=== PATIENT | female | born 2000 | race Caucasian/White ===

== ENCOUNTER 2020-09-30 19:41 | Emergency (ER) | payer OTHER ==
[2020-09-30] MEDS ORDERED: NA CHLORIDE 0.9% 1,000 ML ONE (21:46)
[2020-09-30] MEDS ORDERED: ONDANSETRON 4 MG/2 ML VIAL ONE (21:46)
[2020-09-30] MEDS ORDERED: MORPHINE 4 MG/ML SYR ONE (21:46)
[2020-09-30 21:51] LABS: Urine Blood Negative (Negative); Urine Glucose Negative (Negative); Urine Protein Negative (Negative)
[2020-09-30 22:02] LABS: Absolute Lymphocytes (CBC) 3.3 K/uL (0.7-4.9); Basophils % 0.3 % (0-1.3); Hematocrit 45.5 % (36.0-45.0); Lymphocytes % 26.1 % (15.3-44.8); MPV 9.2 fL (7.6-11.3); RBC Red Blood Cell Count 5.28 M/uL (3.86-4.86)
[2020-09-30 22:23] LABS: ALT/SGPT 22 U/L (12-78); AST/SGOT 9 U/L (15-37); Albumin 4.3 g/dL (3.4-5.0); Alkaline Phosphatase 72 U/L (45-117); BUN Blood Urea Nitrogen 8 mg/dL (7-18); Bicarbonate 25 mmol/L (21-32); Bilirubin Direct < 0.1 mg/dL (0-0.2); Bilirubin Total 0.5 mg/dL (0.2-1.0); Glucose Level 80 mg/dL (74-106); Lipase 109 U/L (73-393); Potassium 3.8 mmol/L (3.5-5.1); Protein, Total 7.9 g/dL (6.4-8.2); Sodium Level 141 mmol/L (136-145)
--- NOTE | 2020-09-30 23:09 | ER ---
Nurse's Notes [facility] Name: Shannen eVla Age: 20 yrs Sex: Female : 2000 Arrival Date: 09/30/2020 Time: 19:44 Bed 23 Private MD: Diagnosis: Low back pain;Ovarian Cyst Presentation: 09/30 20:20 Chief complaint: Patient states: I have this on and off low back dull pain, then last rr5 night it was like a shooting pain that hurts a lot. denies trauma, denies urinary symptoms. 20:20 Coronavirus screen: Client denies travel out of the [place] in the last 14 days. At this rr5 time, the client does not indicate any symptoms associated with coronavirus-19. Ebola Screen: Patient negative for fever greater than or equal to 101.5 degrees Fahrenheit, and additional compatible Ebola Virus Disease symptoms Patient denies exposure to infectious person. Patient denies travel to an Ebola-affected area in the 21 days before illness onset. Initial Sepsis Screen: Does the patient meet any 2 criteria? No. Patient's initial sepsis screen is negative. Does the patient have a suspected source of infection? No. Patient's initial sepsis screen is negative. Risk Assessment: Do you want to hurt yourself or someone else? Patient reports no desire to harm self or others. Onset of symptoms was September 29, 2020. 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 - Social history:: Smoking status: unknown Patient uses alcohol, occasionally. street drugs, marijuana. Screenin:35 Abuse screen: Denies threats or abuse. Nutritional screening: No deficits noted. bb Tuberculosis screening: No symptoms or risk factors identified. Fall Risk None identified. Assessment: 20:35 General: Appears in no apparent distress. Behavior is calm, cooperative. Pain: bb Complains of pain in back Pain began 2-3 days ago. Is intermittent. Neuro: Level of Consciousness is awake, alert, obeys commands, Oriented to person, place, time, situation. Cardiovascular: No deficits noted. Respiratory: Airway is patent Respiratory effort is even, unlabored, Respiratory pattern is regular. GI: No signs and/or symptoms were reported involving the gastrointestinal system. Derm: Skin is pink, warm \T\ dry. Musculoskeletal: Reports pain in lower back. 21:56 Reassessment: Patient is alert, oriented x 3, equal unlabored respirations, skin bb warm/dry/pink. pt awaiting diagnostic results, family at bedside. 22:54 Reassessment: Patient is alert, oriented x 3, equal unlabored respirations, skin bb warm/dry/pink. IV site intact, no erythema or edema noted, pt awaiting diagnostic results, family at bedside Patient states feeling better. Patient states symptoms have improved. 23:23 Reassessment: Patient is alert, oriented x 3, equal unlabored respirations, skin bb warm/dry/pink. pt verbalized understanding of and agrees to plan of care discharge instructions given pt ambulated with steady gait to exit accompanied by spouse. Vital Signs: 20:20 BP 125 / 87; Pulse 76; Resp 16; Temp 98.6; Pulse Ox 100% ; Weight 58.97 kg; Height 5 rr5 ft. 4 in. (162.56 cm); Pain 5/10; 21:45 BP 105 / 51; Pulse 70; Resp 19; Pulse Ox 99% ; rr5 22:48 BP 115 / 61; Pulse 73; Resp 16 S; Pulse Ox 100% on R/A; Pain 2/10; bb 20:20 Body Mass Index 22.31 (58.97 kg, 162.56 cm) rr5 ED Course: 19:44 Patient arrived in ED. cl3 20:24 Triage completed. rr5 20:30 Destin Gan, JARED is Primary Nurse. mg2 20:34 Patient placed in an exam room, on a stretcher, on pulse oximetry. Family accompanied bb patient. 20:35 Patient has correct armband on for positive identification. Bed in low position. Call bb light in reach. Side rails up X 1. Adult w/ patient. Pulse ox on. NIBP on. Warm blanket given. 20:39 Kole Moss MD is Attending Physician. [facility] 21:45 Inserted saline lock: 20 gauge in right forearm, using aseptic technique. Blood rr5 collected. 22:21 CT Stone Protocol In Process Unspecified. EDMS 23:07 Clotilde Rosales MD is Referral Physician. [facility] 23:22 No provider procedures requiring assistance completed. IV discontinued, intact, bb bleeding controlled, No redness/swelling at site. Pressure dressing applied. Administered Medications: 21:47 Drug: Zofran (Ondansetron) 4 mg Route: IVP; Site: right forearm; rr5 22:45 Follow up: Response: No adverse reaction bb 21:49 Drug: morphine 4 mg {Note: rass 0.} Route: IVP; Site: right forearm; rr5 22:45 Follow up: Response: No adverse reaction; Pain is decreased; RASS: Alert and Calm (0) bb 21:49 Drug: NS 0.9% 1000 ml Route: IV; Rate: 1000 ml; Site: right forearm; rr5 22:45 Follow up: Response: No adverse reaction; IV Status: Completed infusion; IV Intake: bb 1000ml Intake: 22:45 IV: 1000ml; Total: 1000ml. bb Outcome: 23:08 Discharge ordered by . 7 23:23 Discharged to home ambulatory, with family. bb 23:23 Condition: stable 23:23 Discharge instructions given to patient, Instructed on discharge instructions, follow up and referral plans. medication usage, Demonstrated understanding of instructions, follow-up care, medications, Prescriptions given X 3. 23:24 Patient left the ED. bb Signatures: Dispatcher [employer] EDOH Tracy Romo RN RN bb Gardose, Michele, RN RN mg2 Roque, Raymond, RN RN rr5 Leroy Lakhani cl3 Kole Moss MD MD [facility]
--- NOTE | 2020-09-30 23:09 | EDPHYS ---
Physician Documentation [facility] Name: Shannen Vela Age: 20 yrs Sex: Female : 2000 Arrival Date: 09/30/2020 Time: 19:44 Bed 23 Private MD: ED Physician Kole Moss HPI: 09/30 21:07 This 20 yrs old Female presents to ER via Ambulatory with complaints of Low mh7 Back Pain. 21:07 The patient presents with pain that is acute, with no known mechanism of injury. The mh7 symptoms are located in the right low back. The pain does not radiate. The problem was sustained from unknown cause. Onset: The symptoms/episode began/occurred 2 day(s) ago. Modifying factors: The patient symptoms are alleviated by nothing, the patient symptoms are aggravated by movement. Associated signs and symptoms: Pertinent negatives: abdominal pain, chest pain, constipation, dysuria, fever, headache, hematuria, incontinence, nausea, numbness, tingling, urinary retention, vomiting, weakness. Severity of symptoms: At their worst the symptoms were moderate, last night, in the emergency department the symptoms are unchanged. 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 - Social history:: Smoking status: unknown Patient uses alcohol, occasionally. street drugs, marijuana. ROS: 21:07 Constitutional: Negative for fever, chills, and weight loss, Eyes: Negative for injury, mh7 pain, redness, and discharge, ENT: Negative for injury, pain, and discharge, Neck: Negative for injury, pain, and swelling, Cardiovascular: Negative for chest pain, palpitations, and edema, Respiratory: Negative for shortness of breath, cough, wheezing, and pleuritic chest pain, Abdomen/GI: Negative for abdominal pain, nausea, vomiting, diarrhea, and constipation, : Negative for injury, bleeding, discharge, and swelling, MS/Extremity: Negative for injury and deformity, Skin: Negative for injury, rash, and discoloration, Neuro: Negative for headache, weakness, numbness, tingling, and seizure, Psych: Negative for depression, anxiety, suicide ideation, homicidal ideation, and hallucinations, Allergy/Immunology: Negative for hives, rash, and allergies, Endocrine: Negative for neck swelling, polydipsia, polyuria, polyphagia, and marked weight changes, Hematologic/Lymphatic: Negative for swollen nodes, abnormal bleeding, and unusual bruising. Exam: 21:07 Constitutional: This is a well developed, well nourished patient who is awake, alert, mh7 and in no acute distress. Head/Face: Normocephalic, atraumatic. Eyes: Pupils equal round and reactive to light, extra-ocular motions intact. Lids and lashes normal. Conjunctiva and sclera are non-icteric and not injected. Cornea within normal limits. Periorbital areas with no swelling, redness, or edema. Neck: Trachea midline, no thyromegaly or masses palpated, and no cervical lymphadenopathy. Supple, full range of motion without nuchal rigidity, or vertebral point tenderness. No Meningismus. Chest/axilla: Normal chest wall appearance and motion. Nontender with no deformity. No lesions are appreciated. Cardiovascular: Regular rate and rhythm with a normal S1 and S2. No gallops, murmurs, or rubs. Normal PMI, no JVD. No pulse deficits. Respiratory: Lungs have equal breath sounds bilaterally, clear to auscultation and percussion. No rales, rhonchi or wheezes noted. No increased work of breathing, no retractions or nasal flaring. Abdomen/GI: Soft, non-tender, with normal bowel sounds. No distension or tympany. No guarding or rebound. No evidence of tenderness throughout. 21:07 Skin: Warm, dry with normal turgor. Normal color with no rashes, no lesions, and no evidence of cellulitis. MS/ Extremity: Pulses equal, no cyanosis. Neurovascular intact. Full, normal range of motion. Neuro: Awake and alert, GCS 15, oriented to person, place, time, and situation. Cranial nerves II-XII grossly intact. Motor strength 5/5 in all extremities. Sensory grossly intact. Cerebellar exam normal. Normal gait. Psych: Awake, alert, with orientation to person, place and time. Behavior, mood, and affect are within normal limits. 21:07 Back: pain, that is moderate, ROM is normal, normal spinal alignment noted, CVA tenderness, that is mild, is noted on the right, muscle spasm, is not present, Straight leg raises: of both lower extremities does not illicit pain. Vital Signs: 20:20 BP 125 / 87; Pulse 76; Resp 16; Temp 98.6; Pulse Ox 100% ; Weight 58.97 kg; Height 5 rr5 ft. 4 in. (162.56 cm); Pain 5/10; 21:45 BP 105 / 51; Pulse 70; Resp 19; Pulse Ox 99% ; rr5 22:48 BP 115 / 61; Pulse 73; Resp 16 S; Pulse Ox 100% on R/A; Pain 2/10; bb 20:20 Body Mass Index 22.31 (58.97 kg, 162.56 cm) rr5 MDM: 23:06 Differential diagnosis: arthritis, strain, fracture, sciatica, Herniated disc UTI, mh7 Musculoskeletal Pain, Flank Painj. Data reviewed: vital signs, nurses notes, lab test result(s), CBC, electrolytes, urinalysis, UPT: negative radiologic studies, CT scan. Data interpreted: Pulse oximetry: on room air is 100 %. Interpretation: normal. Counseling: I had a detailed discussion with the patient and/or guardian regarding: the historical points, exam findings, and any diagnostic results supporting the discharge/admit diagnosis, lab results, radiology results, the need for outpatient follow up, an access assoc, an OB/Gyne specialist. Response to treatment: the patient's symptoms have resolved after treatment, the patient's blood pressure is in an acceptable range, mental status has returned to baseline, the patient no longer shows bradycardia, the patient is not short of breath, the patient is not tachycardic, the patient's pain is gone, the patient's temperature has normalized. 23:08 Patient medically screened. [facility] 09/30 21:06 Order name: Basic Metabolic Panel; Complete Time: 22:56 [facility] 09/30 21:06 Order name: CBC with Diff; Complete Time: 22:56 [facility] 09/30 21:06 Order name: Hepatic Function; Complete Time: 22:56 [facility] 09/30 21:06 Order name: Lipase; Complete Time: 22:56 [facility] 09/30 21:51 Order name: Urine --Ancillary (enter results) [facility] 09/30 21:51 Order name: Urine Dipstick-Ancillary; Complete Time: 21:51 [facility] 09/30 21:06 Order name: IV Saline Lock; Complete Time: 21:49 [facility] 09/30 21:06 Order name: Labs collected and sent; Complete Time: 21:49 [facility] 09/30 21:06 Order name: Urine Dipstick-Ancillary (obtain specimen); Complete Time: 21:49 [facility] 09/30 21:51 Order name: Urine --Ancillary; Complete Time: 22:56 [facility] 09/30 21:52 Order name: CT Stone Protocol [facility] 09/30 21:06 Order name: Urine Test (obtain specimen); Complete Time: 21:49 7 Administered Medications: 21:47 Drug: Zofran (Ondansetron) 4 mg Route: IVP; Site: right forearm; rr5 22:45 Follow up: Response: No adverse reaction bb 21:49 Drug: morphine 4 mg {Note: rass 0.} Route: IVP; Site: right forearm; rr5 22:45 Follow up: Response: No adverse reaction; Pain is decreased; RASS: Alert and Calm (0) 21:49 Drug: NS 0.9% 1000 ml Route: IV; Rate: 1000 ml; Site: right forearm; rr5 22:45 Follow up: Response: No adverse reaction; IV Status: Completed infusion; IV Intake: bb 1000ml Disposition: 09/30/20 23:08 Discharged to Home. Impression: Low back pain, Ovarian Cyst. - Condition is Stable. - Discharge Instructions: Back Pain, Adult, Back Injury Prevention, [id number], Ovarian Cyst, [id number]. - Prescriptions for Ibuprofen 600 mg Oral Tablet - take 1 tablet by ORAL route every 8 hours As needed take with food; 15 tablet. Robaxin 500 mg Oral Tablet - take 1 tablet by ORAL route every 6 hours As needed; 20 tablet. Tramadol 50 mg Oral Tablet - take 1 tablet by ORAL route every 8 hours as needed; 12 tablet. - Work release form, Medication Reconciliation Form, Thank You Letter, Antibiotic Education, Prescription Opioid Use form. - Follow up: Private Physician; When: 1 - 2 days; Reason: Worsening of condition, Recheck today's complaints, Continuance of care, Re-evaluation by your physician. Follow up: Clotilde Rosales MD; When: 2 - 3 days; Reason: Recheck today's complaints. - Problem is new. - Symptoms have improved. Signatures: Dispatcher [employer] Tracy Delvalle, RN RN bb Garrett Whitman RN RN rr5 Kole Moss MD MD mh7 Corrections: (The following items were deleted from the chart) 23:24 23:08 09/30/2020 23:08 Discharged to Home. Impression: Low back pain; Ovarian Cyst. bb Condition is Stable. Forms are Medication Reconciliation Form, Thank You Letter, Antibiotic Education, Prescription Opioid Use. Follow up: Private Physician; When: 1 - 2 days; Reason: Worsening of condition, Recheck today's complaints, Continuance of care, Re-evaluation by your physician. Follow up: Clotilde Rosales; When: 2 - 3 days; Reason: Recheck today's complaints. Problem is new. Symptoms have improved. mh7
--- NOTE | 2020-10-03 10:36 | RAD REPORT ---
EXAM DESCRIPTION: CT - Stone Protocol - 10/01/2020 6:16 am CLINICAL HISTORY: FLANK PAIN. COMPARISON: None. TECHNIQUE: Serial axial CT images were obtained from above the diaphragm through the pubic symphysis without administration of intravenous or oral contrast. All CT scans are performed using dose optimization techniques as appropriate, including automated exp osure control and/or standardized protocols, where dose is adjusted for indication for exam and body habitus. FINDINGS: Thoracic: No significant abnormality. Hepatobiliary: No obvious concerning hepatic lesion identified in the absence of intravenous contrast . The gallbladder is unremarkable. No biliary ductal dilatation. Pancreas: Unremarkable. Spleen: Unremarkable. Gastrointestinal: No evidence of bowel obstruction or perienteric inflammation. The appendix is nia l. Small amount of fecal material throughout the colon. Adrenals: No abnormality identified in either adrenal gland. Renal: No obvious parenchymal abnormality in either kidney in the absence of intravenous contrast. No hydronephrosis or urolithiasis. Bladder/Reproductive: Unremarkable appearance of the urinary bladder by CT technique. Right ovarian d ermoid cyst measures 4.8 x 3.5 cm. Left ovarian dermoid cyst measures 1.4 x 2.2 cm. Vascular/Lymphatics: No lymphadenopathy identified by CT size criteria. Abdominal aorta is normal in caliber. Musculoskeletal: No concerning osseous lesion identified. Fluid / peritoneum: Trace free fluid in the pelvis, likely physiologic. No free intraperitoneal air identified. IMPRESSION: 1. No acute abnormality identified in the abdomen or pelvis by CT. 2. No hydronephrosis or urolithiasis. Normal appendix. 3. Bilateral ovarian dermoid cysts, measuring 4.8 cm on the right and 2.2 cm on the left. Recomme nd nonemergent contrast enhanced pelvic MRI if not already performed at an outside facility. If not s urgically resected, recommend pelvic US follow-up annually (Reference: J Am Kaia Radiol 2013;10:675-6 81). Electronically signed by: Kelly Ballard MD 09/30/2020 10:33 PM CDT Due to temporary technical issues with the PACS/Fluency reporting system, reports are being signed by the in house radiologist without review as a courtesy to ensure prompt reporting. The interpreting r adiologist is fully responsible for the content of the report.
== END 2020-09-30 23:24 | disposition home or self-care (01) ==
LOC: ER 19:41
DX: N83.209 Unspecified ovarian cyst, unspecified side (principal)
CPT/HCPCS: 96361; 85025; 80048; 36415; 81025; 80076; 81003; 83690; 76377; 74176; 96375; 96374; 99284; J7030; J2405

== ENCOUNTER 2021-04-16 11:17 | Emergency (ER) | payer OTHER ==
[2021-04-16] MEDS ORDERED: DERMABOND SKIN ADHESIVE TOP ONE (12:41)
--- NOTE | 2021-04-16 12:42 | ER ---
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 <2 cm laceration, bleeding controlled. Coronavirus screen: Vaccine status: Patient reports receiving the 2nd dose of the covid vaccine. Client denies travel out of the [place] in the last 14 days. At this time, the client does not indicate any symptoms associated with coronavirus-19. Ebola Screen: Patient denies travel to an Ebola-affected area in the 21 days before illness onset. Complicating Factors: There are no complicating factors for this patient. Initial Sepsis Screen: Does the patient meet any 2 criteria? No. Patient's initial sepsis screen is negative. Does the patient have a suspected source of infection? Yes: Skin breakdown/wound. Risk Assessment: Do you want to hurt yourself or someone else? Patient reports no desire to harm self or others. Onset of symptoms was April 16, 2021. 11:35 Method Of Arrival: Ambulatory ll1 11:35 Acuity: TONNY 4 ll1 Triage Assessment: 11:36 General: Appears in no apparent distress. Behavior is calm, cooperative, appropriate ll1 for age. Pain: Complains of pain in left hand Quality of pain is described as aching, Aggravated by increased activity. Derm: Wound noted left hand Wound is < 2 cm laceration. Musculoskeletal: Circulation, motion, and sensation intact. Capillary refill < 3 seconds, Range of motion: intact in all extremities. Injury Description: Laceration sustained to left hand is clean, superficial, 0.5 to 2.5 cm long, was sustained 1-2 hours ago. is bleeding no active bleeding noted. Historical: - Allergies: 11:34 No Known Allergies; ll1 - PMHx: 11:34 None; ll1 - PSHx: 11:34 None; ll1 - Immunization history:: Client reports receiving the 2nd dose of the Covid vaccine, Last tetanus immunization: up to date. - Social history:: Smoking status: Patient denies any tobacco usage or history of. Screenin:37 Abuse screen: Denies threats or abuse. Nutritional screening: No deficits noted. ll1 Tuberculosis screening: No symptoms or risk factors identified. 11:41 Fall Risk None identified. 5 Assessment: 11:41 Reassessment: No changes from previously documented assessment. 5 12:57 Reassessment: Patient appears in no apparent distress at this time. Patient and/or ss family updated on plan of care and expected duration. Pain level reassessed. Patient is alert, oriented x 3, equal unlabored respirations, skin warm/dry/pink. Patient states symptoms have improved. Vital Signs: 11:35 BP 144 / 58; Pulse 67; Resp 16; Temp 98.2; Pulse Ox 98% on R/A; Height 5 ft. 4 in. ll1 (162.56 cm); Pain 1/10; ED Course: 11:20 Patient arrived in ED. as 11:27 Sen Maurer NP is PHCP. pm1 11:27 Anthony Navraez MD is Attending Physician. pm1 11:34 Ariel Angulo, JARED is Primary Nurse. 5 11:34 Arm band placed on Patient placed in an exam room, on a stretcher. 1 11:37 Triage completed. 1 11:37 Patient has correct armband on for positive identification. Bed in low position. Call 1 light in reach. Side rails up X 1. Cardiac monitoring not applicable on this patient. 11:41 No provider procedures requiring assistance completed. 5 12:57 Patient did not have IV access during this emergency room visit. Administered Medications: No medications were administered Outcome: 12:41 Discharge ordered by . 1 12:57 Discharged to home ambulatory. 12:57 Condition: good 12:57 Discharge instructions given to patient, family, Instructed on discharge instructions, follow up and referral plans. Demonstrated understanding of instructions, follow-up care. 12:57 Patient left the ED. Signatures: Anna Puentes Shelby, RN RN Sen Maurer NP SHIPPING AND RECEIVING pm1 Tricia Lakhani RN RN [facility] Ariel Angulo RN RN [facility]
--- NOTE | 2021-04-16 12:42 | EDPHYS ---
Physician Documentation [facility] [place] Name: Shannen Vela Age: 20 yrs Sex: Female : 2000 Arrival Date: 04/16/2021 Time: 11:20 Bed 4 Private MD: ED Physician Anthony Narvaez HPI: 04/16 12:03 This 20 yrs old Female presents to ER via Ambulatory with complaints of pm1 Laceration To Hand. 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 The laceration(s) is(are) located on the Distal inner aspect of left palm. Onset: The symptoms/episode began/occurred just prior to arrival. Associated signs and symptoms: Pertinent negatives: deformity, numbness distal to injury, suspected foreign body, Decreased range of motion. The patient has not experienced similar symptoms in the past. The patient has not recently seen a physician. Historical: - Allergies: 11:34 No Known Allergies; ll1 - PMHx: 11:34 None; ll1 - PSHx: 11:34 None; ll1 - Immunization history:: Client reports receiving the 2nd dose of the Covid vaccine, Last tetanus immunization: up to date. - Social history:: Smoking status: Patient denies any tobacco usage or history of. ROS: 12:03 Constitutional: Negative for fever, chills, and weight loss. pm1 12:03 Cardiovascular: Negative for chest pain, palpitations, and edema, Respiratory: Negative for shortness of breath, cough, wheezing, and pleuritic chest pain, MS/Extremity: Negative for injury and deformity. 12:03 Skin: Positive for laceration(s), of the left hand. 12:03 All other systems are negative. Exam: 12:03 Constitutional: This is a well developed, well nourished patient who is awake, alert, pm1 and in no acute distress. 12:03 Head/Face: Normocephalic, atraumatic. 12:03 Cardiovascular: Exam negative for acute changes, Rate: normal, Rhythm: regular, Pulses: no pulse deficits are appreciated. 12:03 Respiratory: Exam negative for acute changes, respiratory distress, shortness of breath. 12:03 Skin: Appearance: normal except for affected area, injury, avulsion(s), a small of the Distal inner aspect of left palm. 12:03 MS/ Extremity: Pulses equal, no cyanosis. Neurovascular intact. Full, normal range pm1 of motion. 12:03 Neuro: Exam negative for acute changes, Orientation: is normal, Mentation: is normal, Motor: is normal, moves all fours, Sensation: is normal, no obvious gross deficits. Vital Signs: 11:35 BP 144 / 58; Pulse 67; Resp 16; Temp 98.2; Pulse Ox 98% on R/A; Height 5 ft. 4 in. ll1 (162.56 cm); Pain /10; MDM: 11:27 Patient medically screened. pm1 12:40 Data reviewed: vital signs. Data interpreted: Pulse oximetry: on room air is 98 %. pm1 Interpretation: normal. Counseling: I had a detailed discussion with the patient and/or guardian regarding: the historical points, exam findings, and any diagnostic results supporting the discharge/admit diagnosis, the need for outpatient follow up, to return to the emergency department if symptoms worsen or persist or if there are any questions or concerns that arise at home. 12:40 ED course: No laceration present for suturing. Suturing would result in potential pm1 scarring with decreased range of motion to the left pinky finger therefore suturing not performed. Dermabond placed over avulsion to prevent bleeding. 04/16 12:03 Order name: Dermabond; Complete Time: 12:15 pm1 04/16 12:03 Order name: Wound Care; Complete Time: 12:20 pm1 Administered Medications: No medications were administered Disposition: 04/17 10:29 Co-signature as Attending Physician, Anthony Narvaez MD I agree with the assessment and thai plan of care. Disposition Summary: 04/16/21 12:41 Discharge Ordered Location: Home pm1 Problem: new pm1 Symptoms: have improved pm1 Condition: Stable pm1 Diagnosis - Laceration without foreign body of left hand pm1 Followup: pm1 - With: Emergency Department - When: As needed - Reason: Worsening of condition Followup: pm1 - With: Private Physician - When: As needed - Reason: Recheck today's complaints, Continuance of care, Re-evaluation by your physician Discharge Instructions: - Discharge Summary Sheet pm1 - Tissue Adhesive Wound Care pm1 Forms: - Medication Reconciliation Form pm1 - Thank You Letter pm1 - Antibiotic Education pm1 - Prescription Opioid Use pm1 Signatures: Anthony Narvaez MD MD cha Marinas, Patrick, NP [employer] pm1 Tricia Lakhani RN RN ll1
[2021-04-16 13:01] VITALS: BP 144/58; TEMP 98.2; O2SAT 98
== END 2021-04-16 12:57 | disposition home or self-care (01) ==
LOC: ER 11:17
DX: S61.412A Laceration without foreign body of left hand, initial encounter (principal); W26.0XXA Contact with knife, initial encounter; Y93.G3 Activity, cooking and baking; Y92.010 Kitchen of single-family (private) house as the place of occurrence of the external cause
CPT/HCPCS: 99281